=== PATIENT | male | born 1975 | race Hispanic/Latino ===

== ENCOUNTER → 2018-04-27 | Outpatient (CLI) | payer BC ==
[~2018-04-27] MED LIST: DIATRIZOATE MEGL/DIATRIZOA SOD 30 ML BTL PO ONE; IOPAMIDOL 370 MG/ML 200 ML INFUS..BTL INJ ONE; SODIUM CHLORIDE 0.9% 50ML 50 ML ONE
--- NOTE | 2018-04-28 07:29 | Diagnostic Imaging Report ---
EXAMINATION: CT of the abdomen and pelvis with contrast. TECHNIQUE: Spiral CT images of the abdomen and pelvis were performed from the lung bases to the lesser trochanters after the intravenous administration of 100 cc of Isovue-370 and the oral administration of Gastroview. Coronal and sagittal reformatted images were obtained. COMPARISON: None. CLINICAL HISTORY:Abdominal pain, hernia DISCUSSION: ABDOMEN/PELVIS: LOWER THORAX:Unremarkable. HEPATOBILIARY: 3.4 x 2.8 cm lobulated hyperattenuating lesion in segment 8 (series 2 image 12). Geographic hypoattenuation involving the anterior segments of the right lobe compatible with steatosis. High attenuation material within the gallbladder may reflect stones or sludge. Somewhat atypical configuration of the gallbladder with inferior displacement of the neck and a decompressed, superiorly coursing cystic duct. No pericholecystic inflammation. SPLEEN: No splenomegaly. PANCREAS: No focal masses or ductal dilatation. ADRENALS: No adrenal nodules. KIDNEYS/URETERS: No hydronephrosis, stones, or solid mass lesions. PELVIC ORGANS/BLADDER: Urinary bladder is unremarkable. Prostate is enlarged, measuring 5.8 cm transversely. PERITONEUM/RETROPERITONEUM: No free air or fluid. LYMPH NODES: No pelvic sidewall, retroperitoneal, or mesenteric lymphadenopathy. VESSELS: Abdominal aorta, major branch vessels, and iliac arterial systems are well-visualized and patent. Portal vein, splenic vein, and central superior mesenteric vein are patent. GI TRACT: The large bowel shows no evidence of distention or wall thickening. There are scattered diverticula predominantly along the descending and sigmoid colon without wall thickening or adjacent inflammatory change. The appendix is normal. There is no small bowel dilatation to suggest obstruction. BONES AND SOFT TISSUE: No osseous destructive lesions. The right testis lies within the low inguinal canal presumably related to cremasteric reflex. No abdominal wall hernia is identified. IMPRESSION: No abdominal wall or inguinal hernia is identified per clinical query. No evidence of bowel obstruction. Large bowel diverticulosis without evidence of diverticulitis. Cholelithiasis versus gallbladder sludge, without pericholecystic inflammation. 3.4 cm hyperattenuating lesion in hepatic segment 8 most likely represents a flash filling hemangioma in the absence of known malignancy. Definitive characterization with MRI of the abdomen with and without contrast (liver mass protocol) is suggested. Prostatomegaly. Signed by: Dr. Zelalem George M.D. on 04/28/2018 7:25 AM
== END ==
LOC: CT 17:11
PROVIDERS: ATTEND Internal Medicine Gastroenterology
DX: K45.0 Other specified abdominal hernia with obstruction, without gangrene (principal)
CPT/HCPCS: 74177; Q9967

== ENCOUNTER → 2018-04-29 | Day surgery (SDC) | payer BC ==
[~2018-04-29] MED LIST changes: -DIATRIZOATE MEGL/DIATRIZOA SOD 30 ML BTL PO ONE; +FENTANYL CITRATE/PF 100MCG/2 ML INJ ONE; -IOPAMIDOL 370 MG/ML 200 ML INFUS..BTL INJ ONE; +MIDAZOLAM HCL 2 MG/2 ML VIAL ONE; +PROPOFOL IV EMULSION 10 MG/ML 50 ML VIAL ONE; -SODIUM CHLORIDE 0.9% 50ML 50 ML ONE
--- OUTSIDE RECORDS SUMMARY | 2018-04-29 12:04 | XMS REPORT ---
[facility] Address Unknown Phone Unavailable Care Team Providers Care Resaw Operator Name Role Phone TAHMINA CORCORAN Unavailable Unavailable Problems This patient has no known problems. Allergies, Adverse Reactions, Alerts This patient has no known allergies or adverse reactions. Medications This patient has no known medications. Results Test Description Test Time Test Comments Text Results Atomic Results Result Comments CT ABDOMEN/PELVIS W 2018-04-28 07:12:00 [place] [address] Patient Name: BIANKA PRECIADO MR #: [id number] : 1975 Age/Sex: 43/M Req #: [id number] Adm Physician: Ordered by: TAHMINA CORCORAN MD Report #: [id number] Location: CT Room/Bed: Procedure: [id number] CT/CT ABDOMEN/PELVIS W Exam Date: 04/27/18 Exam Time: 1824 REPORT STATUS: Signed EXAMINATION: CT of the abdomen and pelvis with contrast. TECHNIQUE: Spiral CT images of the abdomen and pelvis were performed from the lung bases to the lesser trochanters after the intravenous administration of 100 cc of Isovue-370 and the oral administration of Gastroview. Coronal and sagittal reformatted images were obtained. COMPARISON: None. CLINICAL HISTORY:Abdominal pain, hernia DISCUSSION: ABDOMEN/PELVIS: LOWER THORAX:Unremarkable. HEPATOBILIARY: 3.4 x 2.8 cm lobulated hyperattenuating lesion in segment 8 (series 2 image 12). Geographic hypoattenuation involving the anterior segments of the right lobe compatible with steatosis. High attenuation material within the gallbladder may reflect stones or sludge. Somewhat atypical configuration of the gallbladder with inferior displacement of the neck and a decompressed, superiorly coursing cystic duct. No pericholecystic inflammation. SPLEEN: No splenomegaly. PANCREAS: No focal masses or ductal dilatation. ADRENALS: No adrenal nodules. KIDNEYS/URETERS: No hydronephrosis, stones, or solid mass lesions. PELVIC ORGANS/BLADDER: Urinary bladder is unremarkable. Prostate is enlarged, measuring 5.8 cm transversely. PERITONEUM/RETROPERITONEUM: No free air or fluid. LYMPH NODES: No pelvic sidewall, retroperitoneal, or mesenteric lymphadenopathy. VESSELS: Abdominal aorta, major branch vessels, and iliac arterial systems are well- visualized and patent. Portal vein, splenic vein, and central superior mesenteric vein are patent. GI TRACT: The large bowel shows no evidence of distention or wall thickening. There are scattered diverticula predominantly along the descending and sigmoid colon without wall thickening or adjacent inflammatory change. The appendix is normal. There is no small bowel dilatation to suggest obstruction. BONES AND SOFT TISSUE: No osseous destructive lesions. The right testis lies within the low inguinal canal presumably related to cremasteric reflex. No abdominal wall hernia is identified. IMPRESSION: No abdominal wall or inguinal hernia is identified per clinical query. No evidence of bowel obstruction. Large bowel diverticulosis without evidence of diverticulitis. Cholelithiasis versus gallbladder sludge, without pericholecystic inflammation. 3.4 cm hyperattenuating lesion in hepatic segment 8 most likely represents a flash filling hemangioma in the absence of known malignancy. Definitive characterization with MRI of the abdomen with and without contrast (liver mass protocol) is suggested. Prostatomegaly. Signed by: Dr. Carter Molina M.D. on 04/28/2018 7:25 AM Dictated By: CARTER MOLINA MD 4 Transcribed By: NIECY on 04/28/18724 COPY TO: TAHMINA CORCORAN MD
[2018-04-29 17:47] VITALS: BP 127/94
--- NOTE | 2018-04-29 18:34 | Operative Report ---
DATE OF PROCEDURE: April 29, 2018 REFERRING PHYSICIAN: Dr. Gemma Hensley. PROCEDURES PERFORMED 1. Esophagogastroduodenoscopy with biopsies. 2. Colonoscopy with polypectomy. INDICATIONS FOR ESOPHAGOGASTRODUODENOSCOPY: Upper abdominal pain and bloating. INDICATIONS FOR COLONOSCOPY: Lower abdominal pain, sense of incomplete evaluation evacuation. MEDICATION: Patient was done under MAC. Please see anesthesiologist's note. PROCEDURE: With the patient in left lateral decubitus position, a flexible fiberoptic Olympus gastroscope was introduced into the esophagus under direct visualization without any difficulty. There was some patchy erythema noted in distal esophagus. The scope was then advanced with ease into the stomach. Mucosa overlying the antrum and the body revealed some patchy erythema low-grade to moderate edema and biopsies were obtained, sent to stain for H. pylori. Pylorus appeared to be of normal contour and shape and was intubated with ease and the scope was advanced all the way to the 2nd portion of the duodenum. The scope was then withdrawn slowly. Mucosa overlying the proximal 2nd portion and the duodenal bulb appeared to be within normal limits. The scope was then withdrawn back into the stomach and retroflexed, and mucosa overlying the fundus and the cardia appeared to be within normal limits. The scope was then straightened out and was subsequently withdrawn. Patient tolerated the procedure well. IMPRESSION 1. Distal esophagitis, mild. 2. Gastritis, biopsied. Biopsies sent to stain for Helicobacter pylori. PLAN: Follow up histology. Initiate Protonix 40 mg 1 p.o. q.a.m. a.c. Patient was then turned around and after adequate lubrication of the anal canal, a flexible fiberoptic Olympus colonoscope was inserted into the rectum with ease and advanced all the way to the cecum. Diverticulosis was noted throughout the colon. The scope was then withdrawn slowly. Mucosa overlying the cecum, ascending other than for diverticulosis appeared to be within normal limits. One polyp was snared from the transverse colon and 2 polyps were snared and 2 polyps were hot biopsied from the sigmoid colon. One polyp was snared from the rectum. The scope was then retroflexed into the distal rectum. Small internal hemorrhoids were noted, none of which was actively bleeding. The scope was then straightened out and was subsequently withdrawn. Patient tolerated the procedure well. IMPRESSION 1. Balderrama diverticulosis. 2. Transverse colon polyps, snared. 3. Sigmoid colon polyps x4, two snared and 2 hot biopsied. 4. Rectal polyp x1, snared. 5. Internal hemorrhoids, none actively bleeding. PLAN: Follow up histology. Initiate high-fiber low-fat diet. Initiate high-fiber supplement. Patient would need a followup colonoscopy in 3 years. Job#: [id number] AKU cc:MATILDE HENSLEY MD
== END | disposition home or self-care (01) ==
LOC: OR 12:02
PROVIDERS: ATTEND Internal Medicine Gastroenterology
DX: K29.70 Gastritis, unspecified, without bleeding (principal); D12.3 Benign neoplasm of transverse colon; K20.9 Esophagitis, unspecified; K57.30 Diverticulosis of large intestine without perforation or abscess without bleeding; K64.8 Other hemorrhoids; K45.0 Other specified abdominal hernia with obstruction, without gangrene; R03.0 Elevated blood-pressure reading, without diagnosis of hypertension; F17.210 Nicotine dependence, cigarettes, uncomplicated; Z01.810 Encounter for preprocedural cardiovascular examination; Z68.37 Body mass index [BMI] 37.0-37.9, adult
CPT/HCPCS: 43239; 45384; 45385; 93005; J2250

== ENCOUNTER 2018-04-30 23:17 | Emergency (ER) | payer BC ==
[~2018-04-30] VITALS: Ht 162.6 cm; Wt 90.7 kg
[2018-04-30] MEDS ORDERED: ONDANSETRON HCL INJ 2 MG/ML VIAL IV STA (23:36)
[2018-04-30] MEDS ORDERED: PANTOPRAZOLE 40 MG 10ML VIAL IV STA (23:36)
[2018-04-30 23:49] LABS: BASOPHILS # (AUTO) 0.1 (0.0-0.1); BASOPHILS % 0.4 % (0.0-1.0); EOSINOPHILS % 0.2 % (0.0-6.0); HEMATOCRIT 45.4 % (38.2-49.6); HEMOGLOBIN 15.6 g/dL (14.0-18.0); LYMPHOCYTES # (AUTO) 1.5 (1.0-3.2); LYMPHOCYTES % 9.6 % (18.0-39.1); MEAN CORPUSCULAR HEMOGLOBIN 29.7 pg (28-32); MEAN CORPUSCULAR HGB CONC 34.4 g/dL (31-35); MEAN CORPUSCULAR VOLUME 86.5 fL (81-99); MONOCYTES # (AUTO) 0.7 (0.2-0.8); MONOCYTES % 4.3 % (4.4-11.3); NEUTROPHILS # (AUTO) 12.9 (2.1-6.9); NEUTROPHILS % 84.7 % (38.7-80.0); PLATELET COUNT 438 x10e3/uL (140-360); RED BLOOD COUNT 5.25 x10e6/uL (4.3-5.7); RED CELL DISTRIBUTION WIDTH 12.6 % (11.7-14.4)
[2018-05-01] MEDS ORDERED: DIATRIZOATE MEGL/DIATRIZOA SOD 30 ML BTL PO ONE
[2018-05-01 00:13] LABS: ALANINE AMINOTRANSFERASE 30 IU/L (0-55); ALBUMIN 3.7 g/dL (3.5-5.0); ALBUMIN/GLOBULIN RATIO 1.1 (0.8-2.0); ALKALINE PHOSPHATASE 41 IU/L (40-150); AMYLASE 39 U/L (25-125); ANION GAP 14.1 mmol/L (8-16); BLOOD UREA NITROGEN 19 mg/dL (7-26); BUN/CREATININE RATIO 18 (6-25); CALCIUM 9.1 mg/dL (8.4-10.2); CARBON DIOXIDE 23 mmol/L (22-29); CHLORIDE 102 mmol/L (98-107); CREATININE, SERUM 1.07 mg/dL (0.72-1.25); EST GLOMERULAR FILTRATION RATE > 60 ML/MIN (60-); GLUCOSE 173 mg/dL (74-118); LIPASE 48 U/L (8-78); POTASSIUM 4.1 mmol/L (3.5-5.1); SODIUM 135 mmol/L (136-145)
[2018-05-01] MEDS ORDERED: IOPAMIDOL 370 MG/ML 200 ML INFUS..BTL INJ ONE (00:29)
[2018-05-01] MEDS ORDERED: SODIUM CHLORIDE 0.9% 50ML 50 ML ONE (00:29)
--- NOTE | 2018-05-01 01:50 | Diagnostic Imaging Report ---
EXAM: CT ABDOMEN/PELVIS W DATE: 05/01/2018 12:00 AM INDICATION: Abdominal pain, endoscopy yesterday COMPARISON: 04/27/2018 TECHNIQUE: The abdomen and pelvis were scanned using a multidetector helical scanner. Coronal and sagittal reformations were obtained. CT low dose techniques were utilized, as applicable. IV Contrast: 100 ml Isovue 300/370 FINDINGS: LOWER THORAX: No consolidations LIVER/BILIARY: Hepatic steatosis with stable 3.3 cm segment 8 hyperenhancing lobular lesion. No biliary ductal dilation. GALLBLADDER: Distended gallbladder containing high density stones/sludge and focal simple appearing fluid near the neck, unchanged. SPLEEN: Unremarkable PANCREAS: Unremarkable ADRENALS: No nodules KIDNEYS: No suspicious renal masses. No hydronephrosis. GI TRACT: No wall thickening or evidence of obstruction. Normal appendix. Diverticulosis. VESSELS: Unremarkable PERITONEUM/RETROPERITONEUM: No free air or fluid LYMPH NODES: No lymphadenopathy REPRODUCTIVE ORGANS/BLADDER: Prominent prostate again noted. SOFT TISSUES: High riding right testicle and/or hydrocele. BONES: No suspicious bone lesions. IMPRESSION: No significant change from prior. No new or acute abnormality. Signed by: Dr Ashlyn Quesada MD on 05/01/2018 1:46 AM
== END 2018-05-01 02:01 | disposition home or self-care (01) ==
LOC: ER 23:17
DX: R10.13 Epigastric pain (principal); K29.50 Unspecified chronic gastritis without bleeding; K21.9 Gastro-esophageal reflux disease without esophagitis
CPT/HCPCS: 36415; 74177; 80053; 82150; 83690; 85025; 99284; Q9967

== ENCOUNTER → 2018-06-06 | Outpatient (CLI) | payer BC ==
[~2018-06-06] MED LIST changes: -FENTANYL CITRATE/PF 100MCG/2 ML INJ ONE; +GADOBENATE DIMEGLUMINE 1 ML IV ONE; -MIDAZOLAM HCL 2 MG/2 ML VIAL ONE; -PROPOFOL IV EMULSION 10 MG/ML 50 ML VIAL ONE
--- NOTE | 2018-06-06 17:13 | Diagnostic Imaging Report ---
EXAM: MR Abdomen WITHOUT and WITH Contrast INDICATION: Liver mass. COMPARISON: CT abdomen and pelvis 05/01/2018. 04/27/2018. TECHNIQUE: Multiplanar and multisequence imaging was performed of the abdomen without and with contrast. T1-weighted, T2-weighted images, T1-weighted in and [id number], and Diffusion weighted images. Dynamic, post gadolinium T1-weighted spoiled gradient echo scans. IV Contrast: 19 mL of MultiHance gadolinium Oral Contrast: None Medications: None COMPLICATIONS: None FINDINGS: LOWER THORAX: Unremarkable. HEPATOBILIARY: There is diffuse loss of signal on out of phase images, consistent with diffuse hepatic steatosis. 2.1 x 3.1 cm mildly spiculated lesion in the dome of the right hepatic lobe and segment 8 of the liver (series 10, image 152). This lesion is seen on arterial phase and is only seen on delayed portal venous phase and 5 minute delayed phase. No associated restricted diffusion. No signal abnormalities identified on T2-weighted sequences. This previously measured 2.6 x 3.2 cm. No biliary ductal dilation. GALLBLADDER: 2.9 cm gallstone in the gallbladder neck. Mild wall thickening. SPLEEN: No splenomegaly. PANCREAS: No focal masses or ductal dilatation. ADRENALS: No adrenal nodules KIDNEYS/URETERS: Kidneys enhance symmetrically. No hydronephrosis. No cystic or solid mass lesions. No stones. GI TRACT: No abnormal distention, wall thickening, or evidence of bowel obstruction. LYMPH NODES: No lymphadenopathy. VESSELS: Unremarkable. PERITONEUM / RETROPERITONEUM: No free air or fluid. BONES: Unremarkable. SOFT TISSUES: Unremarkable. IMPRESSION: 1. Diffuse hepatic steatosis. 2. 2.1 x 3.1 cm benign-appearing lesion in segment 8 the liver. This is only seen on a delayed phase, suggestive of a fibrotic lesion versus a focal fatty sparing. Recommend follow-up CT or MR in 6 months. 3. 2.9 cm gallstone in the gallbladder neck causing mild gallbladder distention with mild gallbladder wall thickening. Signed by: Dr. Jose Luis Botello M.D. on 06/06/2018 5:10 PM
== END ==
LOC: MRI 07:50
PROVIDERS: ATTEND Internal Medicine Gastroenterology
DX: R16.0 Hepatomegaly, not elsewhere classified (principal)
CPT/HCPCS: 74183; A9577